=== PATIENT | female | born 1940 | race Caucasian/White ===

== ENCOUNTER 2019-10-15 12:28 | Emergency (ER) | payer OTHER ==
[~2019-10-15] VITALS: Ht 170.2 cm; Wt 120.2 kg
[~2019-10-15 12:28] MED LIST: ASPIR 8181 MG PO; COZAAR 50 MG TA50 M2 PO; ENDOCET 5-3251 EACH PO; FLEXERIL PO; KLOR-CON M2020 MEQ PO; LASIX 80 MG TAB80 MG PO; METFORMIN HCL500 MG PO; MIRAPEX0.5 MG PO; MOBIC15 MG PO; NEXIUM 24HR20 MG PO; TOPROL XL25 MG PO; TRAZODONE HCL100 MG PO
[2019-10-15 13:12] LABS: ANION GAP 7 mmol/L (7-16); BUN 25 mg/dL (7-18); CALCIUM 9.2 mg/dL (8.5-10.1); CHLORIDE 102 mmol/L (98-107); CO2 29 mmol/L (21-32); GLUCOSE 118 mg/dL (74-106); POTASSIUM 4.2 mmol/L (3.5-5.1); SODIUM 138 mmol/L (136-145)
[2019-10-15 13:13] LABS: APTT 25.2 Seconds (24.5-32.8); INR 1.1; PROTIME 11.6 Seconds (9.3-11.4)
[2019-10-15 13:21] LABS: ALBUMIN 3.5 g/dL (3.4-5.0); MAGNESIUM 1.9 mg/dL (1.8-2.4); SGOT 24 U/L (15-37); SGPT 27 U/L (30-65); TOTAL BILIRUBIN 0.4 mg/dL (<0.1-1.0); TOTAL PROTEIN 6.9 g/dL (6.4-8.2); TROPONIN-I <0.06 ng/mL (<0.06)
[2019-10-15] MEDS ORDERED: ASA81BEC PO (15:34)
[2019-10-15] MEDS ORDERED: SYNTHROID100 MC1 PO (15:45)
[2019-10-15 16:10] LABS: HEMATOCRIT 34.4 % (37.0-47.0); HEMOGLOBIN 10.9 gm/dL (12.0-15.0); MCH 28.6 pg (26.0-34.0); MCHC 31.6 g/dL (28.0-37.0); MCV 90.5 fL (80.0-100.0); PLATELET COUNT 317 thou/uL (150-400); RDW 15.6 % (10.5-14.5); WBC 10.6 thou/uL (4.0-11.0)
[2019-10-15] MEDS ORDERED: PERCOCET PO (16:55)
[2019-10-15] MEDS ORDERED: NORFLEX100 MG PO (16:56)
[2019-10-15 17:23] LABS: ABSOLUTE NEUTROPHILS 7.2 thou/uL (1.4-8.2); ANISOCYTOSIS SLIGHT
[2019-10-15 17:24] LABS: PLATELET ESTIMATE NORMAL
[2019-10-15 18:01] VITALS: BP 160/68
--- NOTE | 2019-10-18 08:02 | EKG ---
[facility] [place] [address] ELECTROCARDIOGRAM REPORT Name: YRN PALMER Room #: DEP [facility] [id number] Admission: 10/15/19 Attend Phys: Discharge: 10/15/19 Date of : 42 Report #: [id number] THIS REPORT FOR: cc: Valentin Quintero MD, David R. MD Lundgren,Josh Leal MD [facility] ~ THIS REPORT FOR: //name// [facility] ED Test Date: 2019-10-15 Test Time: 12:40:02 Pat Name: YRN PALMER Department: Room: Gender: Perfusionist: KRYSTAL : 1940 Requested By: Jayro Chance Order Number: [id number] MD: Josh Khan Measurements Intervals [place] Rate: 70 P: 30 MO: 174 QRS: 38 QRSD: 95 T: 41 QT: 420 QTc: 454 Interpretive Statements Sinus rhythm Atrial premature complex No previous ECG available for comparison Electronically Signed On 10-18-2019 8:01:36 CDT by Josh Khan [email or web address] <ELECTRONICALLY SIGNED> By: Josh Khan MD, [facility] 10/18/19 0801 1240 1240 Josh Khan MD, FAC /EPI
== END 2019-10-15 17:05 | disposition home or self-care (01) ==
LOC: ER 12:28
PROVIDERS: Emergency Medicine
DX: R07.89 Other chest pain (principal); G89.29 Other chronic pain; M25.551 Pain in right hip; I10 Essential (primary) hypertension; K21.9 Gastro-esophageal reflux disease without esophagitis; E11.9 Type 2 diabetes mellitus without complications; Z79.899 Other long term (current) drug therapy; Z79.82 Long term (current) use of aspirin